=== PATIENT | male | born 1955 | race African-American/Black ===

== ENCOUNTER 2016-08-30 05:28 | Emergency (ER) | payer BC ==
[2016-08-30 05:46] VITALS: BP 178/115
[2016-08-30] MEDS ORDERED: Doxycycline (NF) 100 MG TAB PO ONE (05:59)
[2016-08-30] MEDS ORDERED: DOXYcycline CAP(*) 100 MG PO ONE (06:15)
--- NOTE | 2016-08-30 06:21 | ED ---
Tahir Nelson Adam, scribed for Harish Waldrop on 08/30/16 at 0544 . Skin Complaint - HPI Summary HPI Summary: Pt is a 60 year old male presenting after a tick bite. He noticed the tick on his right side when he went to take a shower. His removed the tick and they saw that it was red and appeared to be engorged. He is concerned about potential exposure to Lyme Disease and he requests a prescription for abx. PMHx includes HTN and prostate CA. He is UTD with tetanus. - History of Current Complaint Stated Complaint: MED REQUEST Hx Obtained From: Patient Onset/Duration: Started Hours Ago, Atraumatic, Still Present Timing: Constant Onset Severity: Mild Current Severity: None Skin Location: Chest - Right side Aggravating Symptom(s): Nothing Alleviating Symptom(s): Nothing Associated Signs & Symptoms: Negative Related History: Insect Bite/Sting - Tick PMH/Surg Hx/FS Hx/Imm Hx Cardiovascular History: Reports: Hx Hypertension - Cancer History Cancer Type, Location and Year: PROSTATE - Family History Known Family History: Positive: None - R and n/c - Social History Occupation: Employed Full-time Lives: With Family - Alcohol Use: None Hx Substance Use: No Substance Use Type: Reports: None Hx Tobacco Use: No Smoking Status (MU): Never Smoked Tobacco Review of Systems Negative: Fever Positive: Other - Tick bite on right side of chest All Other Systems Reviewed And Are Negative: Yes Physical Exam Triage Information Reviewed: Yes Vital Signs Reviewed: Yes Appearance: Positive: Well-Appearing, No Pain Distress Skin: Positive: Other - Small puncture wound on right side of chest Head/Face: Positive: Normal Head/Face Inspection Eyes: Positive: EOMI, CAROLYN ENT: Positive: Normal ENT inspection Neck: Positive: Supple, Nontender Respiratory/Lung Sounds: Positive: Clear to Auscultation, Breath Sounds Present Cardiovascular: Positive: RRR, Pulses are Symmetrical in both Upper and Lower Extremities Abdomen Description: Positive: Nontender, Soft Bowel Sounds: Positive: Present Musculoskeletal: Positive: Normal, Strength/ROM Intact Course/Dx - Diagnoses Provider Diagnoses: Tick bite Discharge - Discharge Plan Condition: Stable Disposition: HOME Patient Education Materials: Tick Bite (ED) Referrals: Kory ROBLERO,Sid Arriaga [Primary Care Provider] - Additional Instructions: Follow up with your Primary Care Provider. The documentation as recorded by the Tahir bhandari Adam accurately reflects the service I personally performed and the decisions made by me, Harish Waldrop.
[2016-09-02 11:59] LABS: Lyme Disease IgG Ab WB Positive (Negative)
== END 2016-08-30 06:26 | disposition home or self-care (01) ==
LOC: ED 05:28
DX: S30.861A Insect bite (nonvenomous) of abdominal wall, initial encounter (principal); W57.XXXA Bitten or stung by nonvenomous insect and other nonvenomous arthropods, initial encounter; Y93.9 Activity, unspecified; Y92.9 Unspecified place or not applicable; Y99.9 Unspecified external cause status
CPT/HCPCS: 86617; 86618; 99282; A9270-GY

== ENCOUNTER 2017-09-21 18:12 | Emergency (ER) | payer BC ==
[2017-09-21 18:17] VITALS: BP 162/105
[2017-09-21] MEDS ORDERED: DOXYcycline CAP(*) 100 MG PO ONE (18:31)
--- NOTE | 2017-09-21 18:31 | ED ---
Bite Injury/Animal - HPI Summary HPI Summary: 61 male presents with left thigh tick bite for the past 3 days. He states the tick was on it for a day. He removed it a day ago. He states he's noticed some erythema around the area. No fevers. No joint pain. He is concerned that he may have lyme. No medical conditions sides blood pressure. No allergies doxycycline. Has been treated for Lyme last year. Does not believe the tick head is in the area. - History of Current Complaint Chief Complaint: EDAnimalBite Stated Complaint: TICK BITE Time Seen by Provider: 09/21/17 18:28 Pain Intensity: 0 - Allergies/Home Medications Allergies/Adverse Reactions: Allergies Allergy/AdvReac Type Severity Reaction Status Date / Time Penicillins Allergy Difficulty Verified 09/21/17 18:15 Breathing PMH/Surg Hx/FS Hx/Imm Hx Endocrine/Hematology History: Denies: Hx Anticoagulant Therapy Cardiovascular History: Reports: Hx Hypertension - Cancer History Cancer Type, Location and Year: PROSTATE Infectious Disease History: No Infectious Disease History: Denies: Traveled Outside the [place] in Last 30 Days - Family History Known Family History: Positive: None - R and n/c - Social History Alcohol Use: None Hx Substance Use: No Substance Use Type: Reports: None Hx Tobacco Use: No Smoking Status (MU): Never Smoked Tobacco Review of Systems Negative: Fever Negative: Chest Pain Negative: Shortness Of Breath Positive: Other - tick bite left thigh All Other Systems Reviewed And Are Negative: Yes Physical Exam Triage Information Reviewed: Yes Vital Signs On Initial Exam: Initial Vitals Temp Pulse Resp BP Pulse Ox 99.3 F 78 16 162/105 92 09/21/17 18:15 09/21/17 18:15 09/21/17 18:15 09/21/17 18:15 09/21/17 18:15 Vital Signs Reviewed: Yes Appearance: Positive: Well-Appearing Skin: Positive: Warm, Dry, Other - tick bite left thigh Head/Face: Positive: Normal Head/Face Inspection Eyes: Positive: Normal, Conjunctiva Clear Respiratory/Lung Sounds: Positive: Clear to Auscultation, Breath Sounds Present Cardiovascular: Positive: Normal, RRR Musculoskeletal: Positive: Normal Neurological: Positive: Normal Psychiatric: Positive: Normal Diagnostics - Vital Signs Vital Signs Temp Pulse Resp BP Pulse Ox 09/21/17 18:15 99.3 F 78 16 162/105 92 - Laboratory Lab Statement: Any lab studies that have been ordered have been reviewed, and results considered in the medical decision making process. Bite Injury Course/Dx - Course Course Of Treatment: 61 male presents with left thigh tick bite for the past 3 days. He states the tick was on it for a day. He removed it a day ago. He states he's noticed some erythema around the area. No fevers. No joint pain. He is concerned that he may have lyme. No medical conditions sides blood pressure. No allergies doxycycline. Has been treated for Lyme last year. Does not believe the tick head is in the area. On exam has tick bite present left thigh. No bull's-eye race. Will treat with prophylactic dose of doxycycline. Told to develop bull's-eye rash to return to ED. Patient understands agrees with plan. - Diagnoses Differential Diagnosis/HQI/PQRI: Positive: Puncture, Other - tick bite, lyme Provider Diagnosis: Tick bite Discharge - Sign-Out/Discharge Documenting (check all that apply): Discharge/Admit/Transfer - Discharge Plan Condition: Good Disposition: HOME Patient Education Materials: Tick Bite (ED) Referrals: Kory ROBLERO,Sid Arriaga [Primary Care Provider] - Additional Instructions: You have been prophylactically treated for Lyme disease Return to ED if develop any rash or signs of infection - Billing Disposition and Condition Condition: GOOD Disposition: HOME
[2017-09-21] MEDS ORDERED: DOXYcycline CAP(*) 100 MG ONE (18:32)
== END 2017-09-21 18:36 | disposition home or self-care (01) ==
LOC: ED 18:12
DX: S70.362A Insect bite (nonvenomous), left thigh, initial encounter (principal); W57.XXXA Bitten or stung by nonvenomous insect and other nonvenomous arthropods, initial encounter; Y92.9 Unspecified place or not applicable; Z88.0 Allergy status to penicillin
CPT/HCPCS: 99282; A9270-GY

== ENCOUNTER → 2018-03-14 17:27 | Emergency (ER) | payer BC ==
[~2018-03-14 17:27] MED LIST: DOXYcycline CAP(*) 100 MG PO ONE
--- NOTE | 2018-03-14 18:42 | ED ---
Skin Complaint - HPI Summary HPI Summary: Patient complains of tick bite to medial right bicep last night, withi erythema and swelling at site. Denies fever, cough, sore throat, CP, SOB, N/V/D, abdominal pain, change in urine, change in BM. Tick is present. Medical history is hypertension - History of Current Complaint Chief Complaint: EDGeneral Time Seen by Provider: 03/14/18 18:00 Stated Complaint: TICK BITE Hx Obtained From: Patient Onset/Duration: Started Hours Ago Skin Exposure Onset/Duration: Hours Ago Current Severity: None Pain Scale Used: 0-10 Numeric Aggravating Symptom(s): Nothing Alleviating Symptom(s): Nothing Associated Signs & Symptoms: Negative - Allergy/Home Medications Allergies/Adverse Reactions: Allergies Allergy/AdvReac Type Severity Reaction Status Date / Time Penicillins Allergy Difficulty Verified 09/21/17 18:15 Breathing PMH/Surg Hx/FS Hx/Imm Hx Endocrine/Hematology History: Denies: Hx Anticoagulant Therapy Cardiovascular History: Reports: Hx Hypertension History: Denies: Hx Dialysis Neurological History: Denies: Hx CVA - Cancer History Cancer Type, Location and Year: PROSTATE Infectious Disease History: Denies: Traveled Outside the [place] in Last 30 Days - Family History Known Family History: Positive: None - R and n/c - Social History Alcohol Use: None Hx Substance Use: No Substance Use Type: Reports: None Hx Tobacco Use: No Smoking Status (MU): Never Smoked Tobacco Review of Systems Constitutional: Negative Eyes: Negative ENT: Negative Cardiovascular: Negative Respiratory: Negative Gastrointestinal: Negative Genitourinary: Negative Musculoskeletal: Negative Skin: Other Neurological: Negative Psychological: Normal All Other Systems Reviewed And Are Negative: Yes Physical Exam - Summary Physical Exam Summary: Tick bite to medial bicep with tick still present. Tick removed. No erythema migrans. Localized erythema and swelling. No indication of abscess Triage Information Reviewed: Yes Vital Signs On Initial Exam: Initial Vitals Pulse Resp BP Pulse Ox 50 16 154/96 97 03/14/18 17:44 03/14/18 17:44 03/14/18 17:44 03/14/18 17:44 Vital Signs Reviewed: Yes Appearance: Positive: Well-Appearing Skin: Positive: Warm Head/Face: Positive: Normal Head/Face Inspection Eyes: Positive: Normal Neck: Positive: Supple Respiratory/Lung Sounds: Positive: Clear to Auscultation Cardiovascular: Positive: Normal Abdomen Description: Positive: Nontender Musculoskeletal: Positive: Normal Neurological: Positive: Normal Psychiatric: Positive: Normal AVPU Assessment: Alert - [place] Coma Scale Best Eye Response: 4 - Spontaneous Best Motor Response: 6 - Obeys Commands Best Verbal Response: 5 - Oriented Coma Scale Total: 15 Diagnostics - Vital Signs Vital Signs Temp Pulse Resp BP Pulse Ox 03/14/18 17:50 98.3 F 50 16 139/87 95 03/14/18 17:44 50 16 154/96 97 - Laboratory Lab Statement: Any lab studies that have been ordered have been reviewed, and results considered in the medical decision making process. Course/Dx - Course Course Of Treatment: Patient complains of tick bite to medial right bicep last night, withi erythema and swelling at site. Denies fever, cough, sore throat, CP, SOB, N/V/D, abdominal pain, change in urine, change in BM. Tick is present. Medical history is hypertension. Physical exam:Tick bite to medial bicep with tick still present. Tick removed here in the ED. No erythema migrans. Localized erythema and swelling. No indication of abscess. Vital signs within normal limits. Patient given 200 mg doxycycline by mouth x 1 - Diagnoses Provider Diagnoses: Tick bite Discharge - Sign-Out/Discharge Documenting (check all that apply): Patient Departure - Discharge Plan Condition: Stable Disposition: HOME Patient Education Materials: Lyme Disease (ED), Tick Bite (ED) Referrals: Kory ROBLERO,Sid Arriaga [Primary Care Provider] - Additional Instructions: Follow-up with primary care. Return to the ED for any new or worsening symptoms. - Billing Disposition and Condition Condition: STABLE Disposition: Home
[2018-03-14 19:02] VITALS: BP 130/89
== END | disposition home or self-care (01) ==
LOC: ED 17:27
DX: S40.861A Insect bite (nonvenomous) of right upper arm, initial encounter (principal); W57.XXXA Bitten or stung by nonvenomous insect and other nonvenomous arthropods, initial encounter; Y92.9 Unspecified place or not applicable; Z88.0 Allergy status to penicillin; I10 Essential (primary) hypertension
CPT/HCPCS: 99282; A9270-GY

== ENCOUNTER 2018-10-03 09:46 | Emergency (ER) | payer BC ==
[2018-10-03 11:47] VITALS: BP 189/100
--- NOTE | 2018-10-03 12:39 | ED ---
Skin Complaint - HPI Summary HPI Summary: Patient is a 63-year-old otherwise healthy male presenting to the ED with a tick bite to the right lower eyelid. He states the tick was attached for less than 24 hours as it was not there last evening before bed. He feels it attached overnight. He identifies the tick is a deer tick. Denies any history of Lyme disease. Denies any arthralgias, headache or other symptoms. Denies any rash. He states the area is slightly irritated with a mild amount of discomfort and some swelling. - History of Current Complaint Chief Complaint: EDAnimalBite Time Seen by Provider: 10/03/18 10:32 Stated Complaint: TICK BITE PER PT Hx Obtained From: Patient Onset/Duration: Started Hours Ago Skin Exposure Onset/Duration: Hours Ago Timing: Constant Onset Severity: Moderate Current Severity: Moderate Pain Intensity: 0 Pain Scale Used: 0-10 Numeric Skin Location: Other: - right lower lid Aggravating Symptom(s): Nothing Alleviating Symptom(s): Nothing Associated Signs & Symptoms: Negative Related History: Insect Bite/Sting - Allergy/Home Medications Allergies/Adverse Reactions: Allergies Allergy/AdvReac Type Severity Reaction Status Date / Time Penicillins Allergy Difficulty Verified 09/21/17 18:15 Breathing PMH/Surg Hx/FS Hx/Imm Hx Previously Healthy: Yes Endocrine/Hematology History: Denies: Hx Anticoagulant Therapy Cardiovascular History: Reports: Hx Hypertension History: Denies: Hx Dialysis Neurological History: Denies: Hx CVA - Cancer History Cancer Type, Location and Year: PROSTATE Infectious Disease History: No Infectious Disease History: Denies: Traveled Outside the [place] in Last 30 Days - Family History Known Family History: Positive: None - R and n/c - Social History Occupation: Unemployed, Retired Lives: With Family Alcohol Use: None Hx Substance Use: No Substance Use Type: Reports: None Hx Tobacco Use: No Smoking Status (MU): Never Smoked Tobacco Review of Systems Constitutional: Negative Negative: Fever, Chills, Fatigue, Skin Diaphoresis Negative: Photophobia, Blurred Vision, Diplopia, Drainage, Erythema Negative: Palpitations, Chest Pain Negative: Shortness Of Breath, Cough Genitourinary: Negative Positive: no symptoms reported, see HPI Negative: Arthralgia, Myalgia Positive: Other - tick attached to R lower lid Neurological: Negative All Other Systems Reviewed And Are Negative: Yes Physical Exam Triage Information Reviewed: Yes Vital Signs On Initial Exam: Initial Vitals Temp Pulse Resp BP Pulse Ox 98.5 F 66 16 190/111 96 10/03/18 09:48 10/03/18 09:48 10/03/18 09:48 10/03/18 09:48 10/03/18 09:48 Vital Signs Reviewed: Yes Appearance: Positive: Well-Appearing, Well-Nourished Skin: Positive: Warm, Skin Color Reflects Adequate Perfusion, Other - right lower lid attachment Head/Face: Positive: Normal Head/Face Inspection Neck: Positive: No Lymphadenopathy Respiratory/Lung Sounds: Positive: Clear to Auscultation, Breath Sounds Present Cardiovascular: Positive: RRR, Pulses are Symmetrical in both Upper and Lower Extremities Musculoskeletal: Positive: Strength/ROM Intact Neurological: Positive: Alert, Oriented to Person Place, Time, Speech Normal Psychiatric: Positive: Affect/Mood Appropriate Diagnostics - Vital Signs Vital Signs Temp Pulse Resp BP Pulse Ox 10/03/18 11:45 98.5 F 66 16 189/100 96 10/03/18 09:48 98.5 F 66 16 190/111 96 - Laboratory Lab Statement: Any lab studies that have been ordered have been reviewed, and results considered in the medical decision making process. Course/Dx - Course Course Of Treatment: Patient's evaluated for a small right lower lid tick attachment. He states the tick was nonattached yesterday before bed. He believes the tick became attached overnight. The tick was identified as a scapularis tick, deer tick. Identified as a nymphal, small. Attached less than 24 hours per patient. No EM rash identified. For these reasons, patient will not be started on prophylactic or 2 week course of treatment. Tick was detached using tweezers. - Diagnoses Provider Diagnoses: Tick bite Discharge - Sign-Out/Discharge Documenting (check all that apply): Patient Departure Patient Received Moderate/Deep Sedation with Procedure: No - Discharge Plan Condition: Stable Disposition: HOME Patient Education Materials: Tick Bite (ED) Referrals: Kory ROBLERO,Sid Arriaga [Primary Care Provider] - Additional Instructions: ice to the area - Billing Disposition and Condition Condition: STABLE Disposition: Home
== END 2018-10-03 11:45 | disposition home or self-care (01) ==
LOC: ED 09:46
DX: S00.261A Insect bite (nonvenomous) of right eyelid and periocular area, initial encounter (principal); W57.XXXA Bitten or stung by nonvenomous insect and other nonvenomous arthropods, initial encounter; Y92.9 Unspecified place or not applicable; Z85.46 Personal history of malignant neoplasm of prostate; Z88.0 Allergy status to penicillin
CPT/HCPCS: 99281